=== PATIENT | female | born 1980 | race Caucasian/White ===

== ENCOUNTER 2018-09-05 11:17 | Emergency (ER) | payer OTHER ==
[2018-09-05 11:31] VITALS: BP 93/63; PULSE 79; TEMP 97.8; BMI 29.2
--- NOTE | 2018-09-05 12:21 | PDOC ---
History of Present Illness - General Chief Complaint: Injury Stated Complaint: FALL Time Seen by Provider: 09/05/18 11:57 History Source: Patient Exam Limitations: Clinical Condition - History of Present Illness Initial Comments: 09/05/18 12:20 Patient with no syncopal past medical history present with complaint of worsening left ankle pain status post stepping in a pothole yesterday and twisting her ankle and patient reports she was able to walk on the ankle yesterday with mild pain but now pain is worsened today. Reported increased pain with ambulation. Patient denies fall or hitting head. Timing/Duration: 24 hours Past History - Past Medical History Allergies/Adverse Reactions: Allergies Allergy/AdvReac Type Severity Reaction Status Date / Time No Known Allergies Allergy Verified 09/05/18 11:28 Home Medications: Ambulatory Orders Ibuprofen 800 mg PO Q8H PRN #20 tablet 09/05/18 Metformin HCl [Metformin HCl ER] 500 mg PO BID 09/05/18 COPD: No - Suicide/Smoking/Psychosocial Hx Smoking History: Never smoked Review of Systems - Review of Systems Able to Perform ROS?: Yes Is the patient limited Turkish proficient: No Constitutional: No: Weakness HEENTM: No: Symptoms Reported Respiratory: No: Symptoms reported Cardiac (ROS): No: Symptoms Reported ABD/GI: No: Symptoms Reported Musculoskeletal: Yes: See HPI, Joint Pain (left ankle), Joint Swelling (left ankle), Muscle Pain (left ankle on lateral side) Neurological: No: Numbness, Paresthesia, Tingling All Other Systems: Reviewed and Negative *Physical Exam - Vital Signs Last Vital Signs Temp Pulse Resp BP Pulse Ox 97.8 F 79 16 93/63 99 09/05/18 11:28 09/05/18 11:28 09/05/18 11:28 09/05/18 11:28 09/05/18 11:28 - Physical Exam Comments: 09/05/18 12:22 GENERAL: Well developed, well nourished. Awake and alert. No acute distress. CARDIOVASCULAR: Regular rate and rhythm. No murmurs, rubs, or gallops. PULMONARY: No evidence of respiratory distress. Lungs clear to auscultation bilaterally. No wheezing, rales or rhonchi. ABDOMINAL: Soft. Non-tender. Non-distended. No rebound or guarding. No organomegaly. Normoactive bowel sounds MUSCULOSKELETAL : Mild swelling over lateral malleolus of left ankle. Moderate tenderness to lateral malleolus of left ankle with mild tenderness to medial malleolus .No bony deformities EXTREMITIES: No cyanosis. No clubbing. No calf tenderness. SKIN: Warm and dry. Normal capillary refill. No rashes. NEUROLOGICAL: Alert, awake, appropriate. No motor deficits in the lower extremities. PSYCHIATRIC: Cooperative. Good eye contact. Appropriate mood and affect. General Appearance: Yes: Nourished, Appropriately Dressed, Mild Distress Moderate Sedation - Procedure Monitoring Vital Signs: Procedure Monitoring Vital Signs Temperature 97.8 F 09/05/18 11:28 Pulse Rate 79 09/05/18 11:28 Respiratory Rate 16 09/05/18 11:28 Blood Pressure 93/63 09/05/18 11:28 O2 Sat by Pulse Oximetry (%) 99 09/05/18 11:28 ED Treatment Course - RADIOLOGY Radiology Studies Ordered: Category Date Time Status ANKLE & FOOT-LEFT* [RAD] Stat Radiology 09/05/18 12:00 Ordered Medical Decision Making - Medical Decision Making 09/05/18 12:31 Patient with no significant past medical history present with complaint of left ankle pain status post twisting her ankle yesterday. Exam significant for mild swelling to lateral malleolus with moderate tenderness to lateral malleolus of left ankle. Symptoms likely ankle sprain. X- ray of left ankle and foot ordered which shows no acute fracture but shows soft tissue swelling over lateral malleolus. Patient will be placed in Aircast ankle support and discharged home on NSAIDs with orthopedist follow-up as needed. Patient advised to keep ankle and foot elevated for the next 2-3 days and use crutches to help with ambulation for next 48 hours *DC/Admit/Observation/Transfer Diagnosis at time of Disposition: Left ankle sprain Qualifiers: Encounter type: initial encounter Involved ligament of ankle: unspecified ligament Qualified Code(s): S93.402A - Sprain of unspecified ligament of left ankle, initial encounter - Discharge Dispostion Disposition: HOME Condition at time of disposition: Stable Decision to Admit order: No - Prescriptions Prescriptions: Ibuprofen 800 mg PO Q8H PRN #20 tablet PRN Reason: pain - Referrals Referrals: Melo Mariscal DO [Staff Physician] - - Patient Instructions Printed Discharge Instructions: DI for Ankle Sprain Additional Instructions: Your ankle x-ray shows no fracture . Your ankle pain likely from ankle sprain. Take prescribed medication as needed for pain. Keep provided Aircast on for the next 3-5 days and keep leg elevated for the next 2 days to help decrease swelling. Follow-up referred to orthopedics as needed if no improvement after 4 days. - Post Discharge Activity
== END 2018-09-05 12:51 | disposition home or self-care (01) ==
LOC: JERFT 11:17
PROC: 2W3RX1Z Immobilization of Left Lower Leg using Splint (ICD-10-PCS; principal; 2018-09-05)
DX: S93.402A Sprain of unspecified ligament of left ankle, initial encounter (principal); W17.89XA Other fall from one level to another, initial encounter; Y93.01 Activity, walking, marching and hiking; Y92.414 Local residential or business street as the place of occurrence of the external cause; Y99.8 Other external cause status
CPT/HCPCS: 29515; 73610-TC-LT-FY; 73630-TC-LT; 99281-25